=== PATIENT | male | born 1975 | race Caucasian/White ===

== ENCOUNTER 2022-07-16 06:38 | Emergency (ER) | payer SELFPAY ==
[2022-07-16 06:42] VITALS: BP 121/82; PULSE 100; RESP 22; TEMP 36.1; O2SAT 100; BMI 31.9
[2022-07-16 06:58] VITALS: BP 114/80; PULSE 86; RESP 22; TEMP 36.6; O2SAT 99
--- NOTE | 2022-07-16 07:20 | ED.ABDPAIN ---
HPI - Abdominal Pain General Chief Complaint: Abdominal Pain Stated Complaint: Abdominal Pain Time Seen by Provider: 07/16/22 07:05 History of Present Illness HPI narrative: 47-year-old man presenting to the emergency department with complaint of intense pain in the left lower abdomen. This is now day 3. He has actually been experiencing urinary frequency but no dysuria. Does not have a history of urinary tract infections or kidney stones. 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 Does not recall any injury. No rashes noted. Has not had a bowel movement for 2 days. He did measure a fever of over 103.7. He does some leftover penicillin that he took yesterday. Has not had a colonoscopy. Unknown if has diverticular disease. No shortness of breath. Seems to be unable to say whether he can affect the pain in a positive or negative manner. He does not think that this is musculoskeletal. He says he thinks that something deep inside. He appears anxious to know ?I want to know what it is; I want you to help me, figure it out. Initially we when asked about pain medication he mentions Toradol but when I come back around to discuss what pain medications we would use he says he does not need any ?I do not any pain meds Has not been vomiting. No nausea. Review of Systems Status of ROS Reports: 6 or more systems reviewed and unremarkable except as noted in History and below [facility] Social History Smoking Status: Current every day smoker Do you use any of these nicotine containing products: None Second hand tobacco smoke exposure: Yes How often do you have a drink containing alcohol: never AUDIT-C Alcohol total score: 0 Non-prescribed substance use: marijuana (any form) Exam Narrative: Exam Narrative: Pleasant. anxious. Taller stature. Clearly uncomfortable. Restless. Skin is clammy. He is splinting somewhat in his breathing. Cranial nerves 2-12 look to be intact. Oropharynx is sticky. Lungs appear to be clear. Abdomen is soft. Without peritoneal signs. Mild reproduction of pain with palpation deep in the left low abdomen. Percussive tenderness and also pain to palpation in the left sacroiliac joint. Marjorie's however is negative. Heart is in an elevated rate but in regular rhythm. Well-perfused extremities. Without edema. Becomes tearful saying again ?I want to know what's wrong? Const: Vital Signs, click to edit/add: Vital Signs - 24 hr 07/16/22 06:42 07/16/22 06:58 Temperature 97 F L 97.8 F Pulse Rate [Pulse Oximeter] 100 86 Respiratory Rate 22 22 Blood Pressure [Ri ght Upper Arm] 121/82 114/80 Pulse Oximetry 100 99 Oxygen Delivery Me thod Room Air Room Air Documenting provider has reviewed patient's vital signs: yes Course Vital Signs Vital signs: Initial Vital Signs Temperature 97 F L 07/16/22 06:42 Temperature Source Temporal Artery Scan 07/16/22 06:42 Pulse Rate 100 07/16/22 06:42 Pulse Rhythm Regular 07/16/22 06:42 Respiratory Rate 22 07/16/22 06:42 Blood Pressure 121/82 07/16/22 06:42 Blood Pressure Mean 95 07/16/22 06:42 Pulse Oximetry 100 07/16/22 06:42 Oxygen Delivery Method Room Air 07/16/22 06:42 Vital Signs Temperature 97 F L 07/16/22 06:42 Pulse Rate 100 07/16/22 06:42 Respiratory Rate 22 07/16/22 06:42 Blood Pressure 121/82 07/16/22 06:42 Pulse Oximetry 100 07/16/22 06:42 Oxygen Delivery Method Room Air 07/16/22 06:42 Temperature 97.8 F 07/16/22 06:58 Pulse Rate 86 07/16/22 06:58 Respiratory Rate 22 07/16/22 06:58 Blood Pressure 114/80 07/16/22 06:58 Pulse Oximetry 99 07/16/22 06:58 Oxygen Delivery Method Room Air 07/16/22 06:58 MDM - Abdominal Pain MDM Narrative Medical decision making narrative: I am impressed by demonstration of pain. Does not want any medication though appears will accept some IV fluids. He thinks he can give urine for urinalysis. Certainly this could be UTI and pyelonephritis. Diverticulitis with or without perforation. Constipation. Prostatitis. Mesenteric adenitis, epiploic appendagitis. Ureteral stone and colic. Vascular disruption Believes he can produce a urine specimen. I think regardless given the degree of discomfort is demonstrating would be a good idea to image. labs with mild wbc elevation not inconsistent with degree of stress demonstrated today. moderate elevation though of crp. mild hyponatremia. good renal function. mild findings of cystitis. by my review of ct imaging I appreciate a little bladder wall thickening diffusely. not retaining. radiology over read as below IMPRESSION: Wedge-shaped hypodensity within the anteromedial midpole of the left kidney. This along with subtle enhancement involving the proximal ureter/renal collecting system urothelium raises suspicion for pyelonephritis. However, this appearance could be partially artifactual due to motion artifact. Recommend correlation with urinalysis. Mild bladder wall thickening which could be seen with cystitis and could also be correlated with urinalysis. Ill-defined hypodensity within the upper pole of the left kidney, measuring 1.5 x 1.3 cm. Finding may indicate an additional area of suspected pyelonephritis although this appears more masslike and would recommend short-term follow-up ultrasound to ensure resolution and exclude a solid mass. does accept ketoroloc. degree of pain I might expect with infarction of some sort, maybe ureteral spasm atypical for mild cystitis. pain related to pyelonephritis leading ct findings? anxiety over situation, pain amplifying latter as well. discussed findings as above. ucx pending. treating with rocephin for now. see pt discharge plan Lab Data Attestation: I reviewed the patient's lab results. Labs: Lab Results 07/16/22 07/16/22 Range/Units 07:16 07:29 WBC 11.76 H (4.50-11.00) K/uL RBC 5.67 (4.30-5.90) m/uL Hgb 16.0 (13.5-17.5) gm/dL Hct 47.2 (37.0-53.0) % MCV 83 (80-100) fL MCH 28 (26-34) pg MCHC 34 (32-36) gm/dL RDW Coeff of Matt 13.5 (11.5-15.5) % Plt Count 209 (140-440) K/uL Neut % (Auto) 70.9 (42.0-72.0) % Lymph % (Auto) 11.6 L (20-44) % Tyrrell % (Auto) 16.2 H (0.0-11.0) % Eos % (Auto) 0.6 (0.0-7.0) % Baso % (Auto) 0.3 (0.0-3.0) % Neut # (Auto) 8.30 H (1.7-7.0) K/uL Lymph # (Auto) 1.40 (0.90-2.90) K/uL Tyrrell # (Auto) 1.90 H (0.00-0.90) K/UL Eos # (Auto) 0.10 (0.00-0.50) K/uL Baso # (Auto) 0.00 (0.00-0.30) K/uL Sodium 131 L (135-149) mmol/L Potassium 4.2 (3.6-5.1) mmol/L Chloride 101 (96-114) mmol/L Carbon Dioxide 23 (20-32) mmol/L BUN 14 (5-24) mg/dL Creatinine 0.8 (0.5-1.5) mg/dL Estimated Creat Clear 120.27 Estimated GFR 109 ml/min Glucose 113 (60-115) mg/dL Calcium 9.4 (8.4-10.6) mg/dL C-Reactive Protein 7.4 H (0.5-1.0) mg/dL Urine Color Yellow (Yellow) Urine Appearance Clear (Clear) Urine pH 6.0 (5.0-8.5) Ur Specific [place] 1.020 (1.000-1.030) Urine Protein 1+ A (Negative) Urine Glucose (UA) Negative (Negative) Urine Ketones Negative (Negative) Urine Blood Trace-intact A (Negative) Urine Nitrite Negative (Negative) Urine Bilirubin Negative (Negative) Urine Urobilinogen 1.0 (0.2-1.0) Ur Leukocyte Esterase Negative (Negative) Urine RBC 0-2 (0-2) Urine WBC 2-5 (0-5) Ur Squamous Epith Cells Moderate A (None-Few) Urine Bacteria Few A (None) Urine Mucus Moderate A (None) Discharge Plan Discharge Clinical Impression: Acute flank pain, Pyelonephritis, Kidney mass Condition: Stable Additional Instructions: Focus on hydration. Can take up to 800 mg of ibuprofen or up to 1000 mg of acetaminophen per dose. Alternative to the ibuprofen might be up to 500 mg of naproxen 2 times daily. Urine culture will be pending here. Take the ciprofloxacin as prescribed from [facility]. Return for uncontrolled pain, intractable vomiting, persistent fever. There remains a question of an ?ill-defined hypodensity? of maximal size of 1.5 cm in the upper left kidney. It could be related to this infection that we think is present or something else. Important for you to schedule follow-up ultrasound after this treatment course, coordinating with your primary care provider, to further assess what this might be. Follow Up/Referrals: Provider,Not a Local [Primary Care Provider] - Stand Alone Forms: [employer] Info Instructions
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
[2022-07-16 07:41] LABS: Appearance Urine Clear (Clear); Bilirubin Urine Negative (Negative); Blood Urine Trace-intact (Negative); Color Urine Yellow (Yellow); Glucose Urine Negative (Negative); Ketones Urine Negative (Negative); Leukocyte Esterase Urine Negative (Negative); Nitrite Urine Negative (Negative); Protein Urine 1+ (Negative)
[2022-07-16 07:46] LABS: Basophils Percent Auto 0.3 % (0.0-3.0); Eosinophils Percent Auto 0.6 % (0.0-7.0); Hematocrit 47.2 % (37.0-53.0); Immature Granulocytes Pct Auto 0.4 %; Lymphocytes Percent Auto 11.6 % (20-44); Mean Corpuscular HGB Conc 34 gm/dL (32-36); Mean Corpuscular Hemoglobin 28 pg (26-34); Mean Corpuscular Volume 83 fL (80-100); Monocytes Percent Auto 16.2 % (0.0-11.0); Neutrophils Percent Auto 70.9 % (42.0-72.0); Platelet Count* 209 K/uL (140-440); RDW Coefficient of Variation % 13.5 % (11.5-15.5); Red Blood Count 5.67 m/uL (4.30-5.90); White Blood Count* 11.76 K/uL (4.50-11.00)
[2022-07-16 07:50] LABS: Bacteria Urine Few; Mucus Urine Moderate; RBC Urine 0-2 (0-2); Squamous Epithelial Cell Urine Moderate (None-Few)
[2022-07-16 07:50] LABS: Slide Review Reflex No
[2022-07-16 07:53] LABS: Chloride* 101 mmol/L (96-114); Potassium* 4.2 mmol/L (3.6-5.1); Sodium* 131 mmol/L (135-149)
[2022-07-16 07:55] LABS: Creatinine* 0.8 mg/dL (0.5-1.5); Est. Creatinine Clearance* 120.27; Estimated Glomerular Filt Rate 109 ml/min
[2022-07-16 07:56] LABS: Blood Urea Nitrogen* 14 mg/dL (5-24)
[2022-07-16] MEDS: 0.9 % SODIUM CHLORIDE 1000 ml 1,000 ML IV (08:02)
[2022-07-16 08:35] LABS: Calcium* 9.4 mg/dL (8.4-10.6); Carbon Dioxide* 23 mmol/L (20-32); Glucose* 113 mg/dL (60-115)
[2022-07-16 08:38] LABS: C Reactive Protein* 7.4 mg/dL (0.5-1.0)
[2022-07-16] MEDS: cefTRIAXone 1 GM in 0.9 % SODIUM CHLORIDE Mini-bag 100 ML IVPB (09:31)
[2022-07-16] MEDS: KETOROLAC 30 MG/ML inj IVP (10:12)
== END 2022-07-16 10:15 | disposition home or self-care (01) ==
PROVIDERS: Emergency Provider Family Medicine
DX: N12 Tubulo-interstitial nephritis, not specified as acute or chronic (principal); N28.89 Other specified disorders of kidney and ureter
CPT/HCPCS: 36415; 74177; 80048; 81001; 85025; 86140; 87086; 96365; 96375; 99284; J0696; J1885; J7030; Q9967

== ENCOUNTER 2022-11-22 17:34 | Emergency (ER) | payer SELFPAY ==
[2022-11-22 17:38] VITALS: BP 160/101; PULSE 88; RESP 20; TEMP 35.7; O2SAT 97; BMI 32.1
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
[2022-11-22] MEDS: IBUPROFEN 400 MG TABLET 800 MG PO (17:53)
[2022-11-22] MEDS: HYDROCODONE-ACETAMIN 5-325 MG 1 TAB 2 TAB PO (17:54)
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
--- NOTE | 2022-11-22 18:29 | ED.NURSE ---
Pt refused tetanus shot, reports that he received tetanus shot in the last couple years more recent than what [facility] states as being his last shot was in 2007.
--- NOTE | 2022-11-22 19:05 | ED.NURSE ---
tulfa applied to wounds, wrapped on top.
== END 2022-11-22 19:12 | disposition home or self-care (01) ==
PROVIDERS: Emergency Provider Family Medicine
DX: S43.102A Unspecified dislocation of left acromioclavicular joint, initial encounter (principal); S30.811A Abrasion of abdominal wall, initial encounter; V00.148A Other scooter (nonmotorized) accident, initial encounter
CPT/HCPCS: 71045; 73000; 73030; 90471; 99284; 99285; A9270